=== PATIENT | male | born 1965 | race Caucasian/White ===

== ENCOUNTER → 2023-06-30 15:07 | Outpatient (REF) | payer BC, SELFPAY | LOC: HWRAD 15:07 | PROVIDERS: ATTENDING PHYSICIAN Family Medicine | DX: R07.9 Chest pain, unspecified (principal) | CPT/HCPCS: 71046 ==

== ENCOUNTER 2023-07-27 18:40 | Emergency (ER) | payer BC, SELFPAY ==
[2023-07-27 18:41] VITALS: BP 173/93
[2023-07-27 19:23] VITALS: BP 142/82; BP 156/95; BP 163/102; PULSE 82; PULSE 84; PULSE 92
--- NOTE | 2023-07-27 19:26 | ED.GENMED ---
History of Present Illness
General
Chief Complaint: Dizziness
Source: patient
Exam Limitations: none
Time Seen by Provider: 07/27/23 19:14
Travel History
Have you had any contact with someone who has COVID-19?: No
Do you have any symptoms of coronavirus? Fever > 100 degrees, chills, cough, shortness of breath, sore throat, loss of taste or smell, muscle aches, or headache?: No
History of Present Illness
History of Present Illness:
This is a 57 year old male that comes in with c/o chest pain. States that chest pain is not unusual for him as he has a boogie in his chest and hast discomfort sometimes. States that for the past few weeks he has just not felt right. States that he
has this persistent lightheadedness. State that it is like when you don't eat and you feel dizzy. States that for the past 2 days he had had chest pain on and off. States that he is scheduled for a ECHO in Three weeks and has an appointment with
[facility]. States that he may also feel slightly SOB and had diarrhea 2 nights ago. Denies any fever, chills, abd pain, nausea, vomiting, headache, urinary burning.
Past History
Past History
ED Past Medical History: Hypercholesterolemia; Negative Asthma, HTN or NIDDM
ED Past Surgical History: Other (Pectus excavatum with boogie in chest)
Social History
Tobacco: Non-smoker
Alcohol: Occasional
Personal:
Living: with family
Review of Systems
Review of Systems
All Other Systems: ROS reviewed and negative except as documented in HPI and ROS
Constitutional: Reports no symptoms; Denies fever or chills
EENT: Reports no symptoms
Respiratory: Reports trouble breathing (Maybe slightly); Denies cough
Cardiac: Reports chest pain
ABD/GI: Reports no symptoms; Denies abdominal pain, nausea, vomiting or diarrhea
: Reports no symptoms; Denies dysuria, frequency or urgency
Musculoskeletal: Reports no symptoms
Skin: Reports no symptoms
Neurological: Reports dizzy; Denies headache
Psychiatric: Reports no symptoms
Phy Exam
General Physical Exam
General Presentation: well appearing and no apparent distress
General age: appears stated age
General Skin: warm and dry
General Habitus: normal
General Mental: alert
General Hydration: appears well hydrated
ENT Exam
ENT Exam: TM's normal, pharynx normal and neck supple
Eye Exam
Eye Exam: EOMI
Cardiovascular Exam
Cardiovascular Exam: regular rate/rhythm, no edema, no murmur and normal peripheral pulses
Pulmonary Exam
Pulmonary Exam: lungs clear, no respiratory distress, no rales, chest non tender, no crackles, no rhonchi, no wheezing and no cough
Gastrointestinal Exam
Gastrointestinal Exam: normal bowel sounds, non tender, soft, no organomegaly, no pulsatile mass and non distended
Musculoskeletal Exam
Musculoskeletal Exam: full ROM and no edema
Skin Exam
Skin Exam: normal color, warm/dry, no rash and no petechia
Psychiatric Exam
Psychiatric Exam: normal mood/affect
Course
Orders/Labs/Results
Orders:
Orders
07/27/23 18:46
Electrocardiogram (*1) Urgent
Reason for Study: Chest Pain
EKG- Treatment ONCE
07/27/23 19:23
Orthostatic VS- Treatment ONCE
0.9% Sodium Chloride 1000 ml [Nss] 1,000 ml IV BOLUS
07/27/23 19:28
Complete Blood Count/With Diff Urgent
Comprehensive Metabolic Panel Urgent
Troponin I Urgent
07/27/23 20:40
Add On- LAB Urgent
Tests Added?: lYME PROGRESSIVE
Abnormal Lab Results
07/27/23
19:28
Glucose 112 H mg/dl
(70-99)
07/27/23 19:28
07/27/23 19:28
Vital Signs
Initial and Last Documented VS:
Initial Vital Signs
Temp Pulse Resp BP Pulse Ox
97.8 F 83 16 173/93 98
07/27/23 18:41 07/27/23 18:41 07/27/23 18:41 07/27/23 18:41 07/27/23 18:41
Last Documented Vital Signs
Temp Pulse Resp BP Pulse Ox
97.8 F 87 18 173/93 93
07/27/23 18:41 07/27/23 19:35 07/27/23 19:35 07/27/23 18:41 07/27/23 19:35
MDM/Problems Addressed
Differential Diagnosis Includes:
Dehydration,
MDM/Problems Addressed:
This is a 57 year old male that comes in with c/o chest pain and some dizziness over the past few days. States that he does have chest pain due to the boogie in his chest. States that this has been coming and going and he just doesn't feel right.
States that he has been lightheaded as if he hadn't eaten.
Will check labs. Orthostatics, Give IV fluid
Back into see patient. Explained that his blood work is normal. Patient does not tilt. Will add on a Lyme titer as patient has had Lyme disease in the past. Patient has a follow up with the [facility] and an out patient ECHO scheduled. Patient to
return with increased pain, SOB or any other concerns.
Chronic conditions affecting care:
NA
Acute Exacerbation and/or Progression of Chronic Illness:
NA
*Pulse Oximetry
Patient hypoxic: no
*EKG
Interpreted by ED Provider?: Yes
Heart Rate: 83
Rate: normal
Rhythm: sinus
Barlow: normal axis
Interval: normal interval
Ischemia: T-wave inversion (V1, V2, )
*Nursing Consultant Interpretation
Rate: normal
Heart Rate: 90
Rhythm: sinus
*Critical Care Note
Total Time (30-74mins, 75-104mins- exclusive of procedures): Not Applicable
ED Attending Note
-
Portions of this chart may have been created with voice recognition software.� Occasional wrong word or��sound alike� substitutions may have occurred due to the inherent limitations of voice recognition software.
Discharge Plan
Departure
Patient Disposition: Home (Routine Discharge)
Date of Disposition: 07/27/23
Time of Disposition: 20:45
Patient with high blood pressure during this ER visit?: Yes
Condition: Good
Covid-19: Not Applicable
Discharge Problem:
Lightheadedness, Chest pain
Instructions: Chest Pain NON-[facility] Follow Up, Dizziness, BLOOD PRESSURE
Referrals:
Danny Story, DO [Family Provider] - Call in 1-3 days for appt
Activity Restrictions/Additional Instructions:
As discussed, your blood work is normal along with your Troponin. This please increase your water intake to 8-8oz glasses daily. Follow up with the [facility] as scheduled and your out patient ECHO. A Lyme titer was added to your labs and if this
would come back positive you will be called. IF YOU HAVE INCREASED OR CHANGING PAIN, OR YOU HAVE ANY OTHER CONCERNS PLEASE RETURN TO THE EMERGENCY ROOM.
Interventions
Interventions:
*Risk Screen - Suicide Last Done: 07/27/23 18:41
*General Assessment Last Done: 07/27/23 18:41
*Neglect/Abuse Screening Last Done: 07/27/23 18:41
ED- Fall Risk Assessment Last Done: 07/27/23 19:39
*ED COVID-19 Vaccine History Last Done: 07/27/23 18:41
ED- Neurological Assessment Last Done: 07/27/23 19:39
ED- Cardiac Assessment Last Done: 07/27/23 19:39
ED Swallowing Screen Last Done: 07/27/23 19:39
[2023-07-27] MEDS: NSS 1000 IV (19:30)
[2023-07-27 19:38] LABS: % Eosinophils 2.1 % (0-6); % Immature Granulocytes 0.3 % (0-0.5); % Lymphocytes 31.1 % (20.5-51.1); % Neutrophils 58.5 % (42.2-75.2); Absolute Basophils 0.1 10^3/uL (0-0.2); Absolute Eosinophils 0.2 10^3/uL (0-0.7); Absolute Lymphocytes 2.2 10^3/uL (1.2-3.4); Absolute Monocytes 0.5 10^3/uL (0.1-0.6); Absolute Neutrophils 4.2 10^3/uL (1.4-6.5); Hematocrit 45.6 % (39.0-52.0); Hemoglobin 16.1 g/dL (13.0-18.0); Mean Corp Hgb Conc. 35.3 g/dL (33.0-37.0); Mean Corpuscular Hgb 30.6 pg (27.0-31.0); Mean Corpuscular Volume 86.7 fL (80.0-94.0); Mean Platelet Volume 8.7 fL (7.4-10.4); Nucleated Red Blood Cells % 0 % (-); Platelet Count 291 10^3/uL (130-400); Red Blood Cell Count 5.26 10^6/uL (4.70-6.10); Red Cell Dist. Width 12.5 % (11.5-14.5); White Blood Cell Count 7.2 10^3/uL (4.8-10.8)
[2023-07-27 20:00] VITALS: BP 137/81
[2023-07-27 20:03] LABS: Troponin I < 0.012 ng/ml
[2023-07-27 20:08] LABS: ALT (SGPT) 50 U/L (0-50); AST (SGOT) 43 U/L (17-59); Albumin 4.6 g/dl (3.5-5.0); Alkaline Phosphatase 84 U/L (38-126); Blood Urea Nitrogen 14 mg/dl (9-20); Calcium 9.5 mg/dl (8.4-10.2); Carbon Dioxide 28 mmol/L (22-30); Chloride 102 mmol/L (98-107); Glucose 112 mg/dl (70-99); Potassium 4.4 mmol/L (3.5-5.1); Sodium 136 mmol/L (135-145); Total Bilirubin 0.7 mg/dl (0.2-1.3); Total Protein 7.9 g/dl (6.3-8.2); eGFR > 60.00
[2023-07-27 20:30] VITALS: BP 142/82
[2023-07-27 20:32] VITALS: BP 163/102
[2023-07-27 20:33] VITALS: BP 156/95
[2023-07-31 18:10] LABS: Lyme Antibody Screen, EIA Negative (Negative)
== END 2023-07-27 20:56 | disposition home or self-care (01) ==
LOC: EMR 18:40
PROVIDERS: Clinical Nurse Specialist Family Health; EMERGENCY PHYSICIAN Emergency Medicine; FAMILY PHYSICIAN Family Medicine
DX: R07.89 Other chest pain (principal); R42 Dizziness and giddiness; R03.0 Elevated blood-pressure reading, without diagnosis of hypertension
CPT/HCPCS: 99284; 96360; 80053; 84484; 85025; 86618; 93005

== ENCOUNTER → 2023-09-07 11:55 | Outpatient (REF) | payer BC, SELFPAY | LOC: PAVMRI 11:55 | PROVIDERS: ATTENDING PHYSICIAN Family Medicine | DX: R42 Dizziness and giddiness (principal) | CPT/HCPCS: 70553; A9575 ==

== ENCOUNTER → 2024-10-15 07:51 | Outpatient (REF) | payer BC, SELFPAY | LOC: RSP 07:51 | PROVIDERS: ATTENDING PHYSICIAN Internal Medicine Cardiovascular Disease; FAMILY PHYSICIAN Family Medicine | DX: R06.09 Other forms of dyspnea (principal) | CPT/HCPCS: 94727; 94729; 88738; 94060 ==

== ENCOUNTER → 2025-04-03 13:22 | Outpatient (REF) | payer BC, SELFPAY | LOC: RAD 13:22 | PROVIDERS: ATTENDING PHYSICIAN Internal Medicine Critical Care Medicine; FAMILY PHYSICIAN Family Medicine | DX: J98.4 Other disorders of lung (principal); J98.6 Disorders of diaphragm | CPT/HCPCS: 71046; 76000 ==